=== PATIENT | male | born 1985 | race Two or more races ===

== ENCOUNTER 2023-05-31 07:51 | Emergency (ER) | payer MEDICAID ==
[~2023-05-31] VITALS: Ht 182.9 cm; Wt 91.0 kg
[2023-05-31 07:58] VITALS: TEMP 98.2; O2SAT 99
[2023-05-31 08:44] LABS: BASOPHILS % 1.3 % (0.0-2.0); EOSINOPHILS % 4.1 % (0.0-5.0); HEMATOCRIT. 42.5 % (42.0-52.0); HEMOGLOBIN. 14.6 g/dL (14.0-18.0); LYMPHOCYTES % 34.6 % (20.0-50.0); MEAN CORPUSCULAR HEMOGLOBIN 30.9 pg (28.0-32.0); MEAN CORPUSCULAR HGB CONC 34.4 g/dL (31.0-37.0); MEAN CORPUSCULAR VOLUME 89.6 fL (80.0-94.0); MEAN PLATELET VOLUME 7.8 fl (7.4-10.4); MONOCYTES % 12.3 % (2.0-8.0); NEUTROPHILS % 47.7 % (40.0-76.0); PLATELET 178 x1000/uL (130-400); RED BLOOD CELL COUNT 4.75 mill/uL (4.7-6.1); RED CELL DISTRIBUTION WIDTH 13.6 % (11.6-14.6); WHITE BLOOD COUNT 4.8 x1000/uL (4.5-11.0)
[2023-05-31] MEDS ORDERED: AMLODIPINE 5MG TABLET PO NR (08:45)
[2023-05-31 09:01] LABS: CLARITY URINE CLEAR (CLEAR); COLOR URINE YELLOW (YELLOW); GLUCOSE URINE NEGATIVE (NEGATIVE); KETONES URINE NEGATIVE (NEGATIVE); LEUKOCYTE ESTERASE URINE NEGATIVE (NEGATIVE); NITRITE URINE NEGATIVE (NEGATIVE); OCCULT BLOOD URINE NEGATIVE (NEGATIVE); PROTEIN URINE NEGATIVE (NEGATIVE); SPECIFIC GRAVITY URINE 1.014 (1.005-1.030); UROBILINOGEN URINE 0.2 E.U./dL (0.2-1.0)
[2023-05-31 10:05] LABS: CHLORIDE 106 mEq/L (98-107); INDEX HEMOLYSI 2 (1-3); INDEX ICTERIC 1 (1-4); INDEX LIPEMIC 1 (1-3); POTASSIUM 4.6 mEq/L (3.5-5.1); SODIUM 139 mEq/L (136-145)
[2023-05-31 10:17] LABS: ALANINE AMINOTRANSFERASE 77 IU/L (13-61); ALBUMIN 3.8 g/dL (3.4-5.0); ASPARTATE AMINOTRANSFERASE 43 IU/L (15-37); BILIRUBIN TOTAL 1.1 mg/dL (0.1-1.0); GLUCOSE 106 mg/dL (70-105); PROTEIN TOTAL 7.3 g/dL (6.0-8.3); TROPONIN I HIGH SENSITIVITY 7 ng/L (<78); UREA NITROGEN BLOOD 15 mg/dL (7-21)
[2023-05-31 11:01] VITALS: BP 127/82; PULSE 73; RESP 18
[2023-05-31 12:07] LABS: CARBON DIOXIDE 24 mEq/L (21-32)
== END 2023-05-31 11:03 | disposition home or self-care (01) ==
LOC: ER 07:51
DX: G43.909 Migraine, unspecified, not intractable, without status migrainosus (principal); F10.10 Alcohol abuse, uncomplicated; I10 Essential (primary) hypertension; Y90.9 Presence of alcohol in blood, level not specified
CPT/HCPCS: 80053; 81003; 85025; 84484; 36415; 71045; 93005; 99285; Z7610